=== PATIENT | female | born 1965 | race Caucasian/White ===

== ENCOUNTER 2017-01-16 17:27 | Emergency (ER) | payer OTHER ==
[~2017-01-16 17:27] MED LIST: 362 PO; ASPIRIN81 MG PO; BENAZEPRIL10 MG PO; CLARITIN10 MG PO; COLACE100 MG PO; COR3 PO; CYCLOBENZAPRINE5 MG PO; ENALAPRIL MALEA20 MG PO; METFORMIN HCL850 MG PO; NOR10 PO; SERTRALINE HYDR50 M1 PO; TRAMADOL HCL50 M PO; TRAMADOL HCL50 MG PO; VENTOLIN H0.09 MG/A1 INH
[2017-01-16 18:32] VITALS: BP 190/74
== END 2017-01-16 18:32 | disposition home or self-care (01) ==
LOC: ED 17:27
DX: L03.317 Cellulitis of buttock (principal); I10 Essential (primary) hypertension; E11.9 Type 2 diabetes mellitus without complications; J45.909 Unspecified asthma, uncomplicated; Z86.73 Personal history of transient ischemic attack (TIA), and cerebral infarction without residual deficits

== ENCOUNTER 2017-07-04 10:28 | Emergency (ER) | payer OTHER ==
[2017-07-04 13:00] VITALS: BP 154/88
== END 2017-07-04 13:00 | disposition home or self-care (01) ==
LOC: ED 10:28
DX: S82.831A Other fracture of upper and lower end of right fibula, initial encounter for closed fracture (principal); I10 Essential (primary) hypertension; F41.9 Anxiety disorder, unspecified; E11.9 Type 2 diabetes mellitus without complications; Z86.73 Personal history of transient ischemic attack (TIA), and cerebral infarction without residual deficits; Z90.710 Acquired absence of both cervix and uterus; X50.1XXA Overexertion from prolonged static or awkward postures, initial encounter; Y93.89 Activity, other specified; Y92.89 Other specified places as the place of occurrence of the external cause; Y99.8 Other external cause status; J45.909 Unspecified asthma, uncomplicated
CPT/HCPCS: Q0092

== ENCOUNTER 2020-01-24 08:08 | Emergency (ER) | payer OTHER ==
[~2020-01-24] VITALS: Ht 165.1 cm; Wt 80.7 kg
[2020-01-24 08:30] VITALS: Ht 165.1 cm; Wt 80.7 kg
[2020-01-24 09:04] VITALS: BP 137/76
== END 2020-01-24 09:08 | disposition home or self-care (01) ==
LOC: ED 08:08
DX: L40.9 Psoriasis, unspecified (principal); J45.909 Unspecified asthma, uncomplicated; I10 Essential (primary) hypertension; E11.9 Type 2 diabetes mellitus without complications; Z90.710 Acquired absence of both cervix and uterus; Z86.73 Personal history of transient ischemic attack (TIA), and cerebral infarction without residual deficits